=== PATIENT | male | born 1950 | race Caucasian/White ===

== ENCOUNTER 2024-03-01 14:07 | Inpatient (IN) | payer MEDICARE ==
[~2024-03-01] VITALS: Ht 175.3 cm; Wt 58.1 kg
[2024-03-01] MEDS: SODIUM CHLORIDE 0.9% 1000ML BAG (SEPSIS BOLUS) IV ONE (14:47)
[2024-03-01 14:49] LABS: CHLORIDE 96 mEq/L (98-107); HEMATOCRIT. 37.6 % (42.0-52.0); HEMOGLOBIN. 12.6 g/dL (14.0-18.0); MEAN CORPUSCULAR HGB CONC 33.5 g/dL (31.0-37.0); MEAN CORPUSCULAR VOLUME 95.6 fL (80.0-94.0); MEAN PLATELET VOLUME 7.4 fl (7.4-10.4); PLATELET 452 x1000/uL (130-400); POTASSIUM 4.6 mEq/L (3.5-5.1); RED BLOOD CELL COUNT 3.93 mill/uL (4.7-6.1); SODIUM 130 mEq/L (136-145); WHITE BLOOD COUNT 24.9 x1000/uL (4.5-11.0)
[2024-03-01 14:50] LABS: CALCIUM 9.6 mg/dL (8.7-10.4); CARBON DIOXIDE 22 mEq/L (21-32)
[2024-03-01 14:55] LABS: CREATININE 1.5 mg/dL (0.6-1.3); GLUCOSE 136 mg/dL (70-105); UREA NITROGEN BLOOD 26 mg/dL (9-23)
[2024-03-01 14:58] LABS: DIFFERENTIAL COMMENT 1
[2024-03-01 15:01] LABS: D-DIMER 3.53 mg/L FEU (<0.50); INR 1.3; PROTHROMBIN TIME 13.8 sec (9.6-11.0)
[2024-03-01] MEDS: PIPERACILLIN/TAZO 3.375G/50ML 50 ML IV ONE (15:41)
[2024-03-01 16:02] LABS: PLATELET ESTIMATE INCREASED
[2024-03-01 16:04] LABS: LACTIC ACID 6.5 mmol/L (0.4-2.0)
[2024-03-01 16:05] LABS: TROPONIN I HIGH SENSITIVITY 154 ng/L (3.0-53)
[2024-03-01] MEDS: SODIUM CHLORIDE 0.9% 500 ML IV ONE (16:15)
[2024-03-01] MEDS: VANCOMYCIN 500 MG in DEXT 5% WATER 100 ML IV SCH (16:47)
[2024-03-01] MEDS ORDERED: ONDANSETRON HCL 4MG/2ML INJ IV PRN (17:30)
[2024-03-01] MEDS ORDERED: IPRATROPIUM/ALBUTEROL 0.5-3(2.5)MG/3ML NEB HHN PRN (17:30)
[2024-03-01 17:49] LABS: IRON 30 ug/dL (65-175)
[2024-03-01 17:52] LABS: TOTAL IRON BINDING CAPACITY 215 ug/dl (250-425)
[2024-03-01 17:56] LABS: TROPONIN I HIGH SENSITIVITY 312 ng/L (3.0-53)
[2024-03-01 18:11] LABS: ALANINE AMINOTRANSFERASE 13 IU/L (10-49); ALBUMIN 2.9 g/dL (3.2-4.8); ASPARTATE AMINOTRANSFERASE 17 IU/L (<34); BILIRUBIN DIRECT 0.2 mg/dL (<=3.0); BILIRUBIN TOTAL 0.6 mg/dL (0.1-1.0); PHOSPHORUS 3.3 mg/dL (2.5-4.9); PROTEIN TOTAL 5.8 g/dL (6.0-8.3)
[2024-03-01] MEDS: FAMOTIDINE 20MG/2ML VIAL IV SCH (18:12)
[2024-03-01] MEDS: ENOXAPARIN 40MG/0.4ML SYR SUBCUT SCH (18:29)
[2024-03-01] MEDS: SODIUM CHLORIDE 0.9% 1,000 ML IV SCH (18:29)
[2024-03-01] MEDS ORDERED: VANCOMYCIN 1GM/200ML PMX (BAXTER) IV NR (18:30)
[2024-03-01] MEDS: VANCOMYCIN 1000MG/250ML IV NR (19:14)
[2024-03-01] MEDS: MAGNESIUM 4 G PREMIX 100 ML IV NR (20:00)
[2024-03-01] MEDS ORDERED: IOHEXOL-350 100 ML BOTTLE ONE (21:44)
[2024-03-01 22:46] LABS: TROPONIN I HIGH SENSITIVITY 282 ng/L (3.0-53)
[2024-03-02] VITALS (7 sets, daily range): BP systolic 106–163; BP diastolic 50–79; PULSE 84–135; RESP 18–20; TEMP 97.5–98.7
[2024-03-02] MEDS: PIPERACILLIN/TAZO 3.375G/50ML 50 ML IV SCH
[2024-03-02 02:18] LABS: CREATINE KINASE MB FRACTION 2.5 ng/mL (0.5-3.6)
[2024-03-02 07:55] LABS: HEMATOCRIT. 32.3 % (42.0-52.0); HEMOGLOBIN. 10.9 g/dL (14.0-18.0); MEAN CORPUSCULAR HEMOGLOBIN 32.1 pg (28.0-32.0); MEAN CORPUSCULAR HGB CONC 33.7 g/dL (31.0-37.0); MEAN CORPUSCULAR VOLUME 95.2 fL (80.0-94.0); MEAN PLATELET VOLUME 7.6 fl (7.4-10.4); PLATELET 342 x1000/uL (130-400); RED CELL DISTRIBUTION WIDTH 14.6 % (11.6-14.6); WHITE BLOOD COUNT 23.4 x1000/uL (4.5-11.0)
[2024-03-02 07:58] LABS: DIFFERENTIAL COMMENT 1
[2024-03-02 08:00] LABS: CARBON DIOXIDE 22 mEq/L (21-32); CHLORIDE 102 mEq/L (98-107); POTASSIUM 3.1 mEq/L (3.5-5.1); SODIUM 132 mEq/L (136-145)
[2024-03-02 08:01] LABS: CALCIUM 8.7 mg/dL (8.7-10.4)
[2024-03-02 08:06] LABS: CREATININE 0.9 mg/dL (0.6-1.3); GLUCOSE 64 mg/dL (70-105); TRIGLYCERIDE 98 mg/dL (0-150); UREA NITROGEN BLOOD 17 mg/dL (9-23)
[2024-03-02 08:07] LABS: LDL CHOLESTEROL 89 mg/dL (5-100)
[2024-03-02 08:08] LABS: CHOLESTEROL 138 mg/dL (<200); HDL CHOLESTEROL 42 mg/dL (>55)
[2024-03-02 08:09] LABS: CREATINE KINASE MB FRACTION 1.5 ng/mL (0.5-3.6); T4 FREE 0.97 ng/dL (0.89-1.76)
[2024-03-02] MEDS: VANCOMYCIN 1000MG/250ML IV SCH (11:32)
[2024-03-02] MEDS: DILTIAZEM HCL 30MG TABLET PO SCH (12:21)
[2024-03-02] MEDS: POTASSIUM CHLORIDE 20MEQ/PACKET PO NR (14:30)
[2024-03-02] MEDS: MAGNESIUM 2 G PREMIX 50 ML IV NR (17:28)
[2024-03-02] MEDS: MAGNESIUM OXIDE 400MG TABLET PO SCH (17:28)
[2024-03-02 20:25] LABS: PLATELET ESTIMATE NORMAL
[2024-03-03] VITALS: BP_SYST 132; BP_DIAS 63; BP_DIAS 64; PULSE 81; RESP 17; RESP 19; TEMP 97.7; TEMP 97.9
[2024-03-03 04:00] VITALS: BP 132/63; PULSE 81; RESP 19; TEMP 97.7
[2024-03-03 07:27] LABS: CARBON DIOXIDE 25 mEq/L (21-32); CHLORIDE 100 mEq/L (98-107); POTASSIUM 3.2 mEq/L (3.5-5.1); SODIUM 133 mEq/L (136-145)
[2024-03-03 07:28] LABS: CALCIUM 8.6 mg/dL (8.7-10.4)
[2024-03-03 07:33] LABS: CREATININE 0.7 mg/dL (0.6-1.3); GLUCOSE 84 mg/dL (70-105); UREA NITROGEN BLOOD 12 mg/dL (9-23)
[2024-03-03 08:00] VITALS: BP 133/63; PULSE 89; RESP 20; TEMP 98.1
[2024-03-03 08:03] LABS: HEMATOCRIT 30.6 % (42.0-52.0); HEMOGLOBIN 10.5 g/dL (14.0-18.0); MEAN CORPUSCULAR HGB CONC 34.3 g/dL (31.0-37.0); MEAN CORPUSCULAR VOLUME 93.2 fL (80.0-94.0); PLATELET 322 x1000/uL (130-400); RED BLOOD CELL COUNT 3.29 mill/uL (4.7-6.1); RED CELL DISTRIBUTION WIDTH 14.6 % (11.6-14.6); WHITE BLOOD COUNT 18.4 x1000/uL (4.5-11.0)
[2024-03-03] MEDS: POTASSIUM CHLORIDE 20MEQ/PACKET PO NR (09:13)
[2024-03-03 12:00] VITALS: BP 107/71; PULSE 90; RESP 18; TEMP 97.6
[2024-03-03 16:00] VITALS: BP 128/63; PULSE 86; RESP 18; TEMP 97.6
[2024-03-03 20:00] VITALS: BP 120/52; PULSE 82; RESP 20; TEMP 97.5
[2024-03-04] VITALS (7 sets, daily range): BP systolic 121–145; BP diastolic 53–70; PULSE 85–93; RESP 16–20; TEMP 97.5–99; O2SAT 98
[2024-03-04 08:14] LABS: HEMATOCRIT 31.3 % (42.0-52.0); HEMOGLOBIN 10.5 g/dL (14.0-18.0); MEAN CORPUSCULAR HEMOGLOBIN 31.9 pg (28.0-32.0); MEAN CORPUSCULAR HGB CONC 33.6 g/dL (31.0-37.0); MEAN CORPUSCULAR VOLUME 94.9 fL (80.0-94.0); RED CELL DISTRIBUTION WIDTH 14.7 % (11.6-14.6); WHITE BLOOD COUNT 20.3 x1000/uL (4.5-11.0)
[2024-03-04 08:29] LABS: CHLORIDE 101 mEq/L (98-107); POTASSIUM 3.3 mEq/L (3.5-5.1); SODIUM 133 mEq/L (136-145)
[2024-03-04 08:30] LABS: CARBON DIOXIDE 26 mEq/L (21-32)
[2024-03-04 08:31] LABS: CALCIUM 8.5 mg/dL (8.7-10.4)
[2024-03-04 08:35] LABS: CREATININE 0.6 mg/dL (0.6-1.3); GLUCOSE 84 mg/dL (70-105)
[2024-03-04 08:36] LABS: UREA NITROGEN BLOOD 11 mg/dL (9-23)
[2024-03-04] MEDS: GUAIFENESIN-DM 200MG-20MG/10ML UDC PO PRN (10:57)
[2024-03-04] MEDS: POTASSIUM CHLORIDE 20MEQ/PACKET PO NR (10:58)
[2024-03-04] MEDS: MAGNESIUM 4 G PREMIX 100 ML IV NR (12:42)
[2024-03-04] MEDS: METHYLPREDNISOLONE SOD SUCC 125MG/2ML (ACT-O-VIAL) IV SCH (13:40)
[2024-03-04] MEDS: DILTIAZEM HCL 30MG TABLET PO SCH (14:00)
[2024-03-04] MEDS: BUDESONIDE 0.5MG/2ML NEB HHN SCH (20:41)
[2024-03-04] MEDS: IPRATROPIUM/ALBUTEROL 0.5-3(2.5)MG/3ML NEB HHN SCH (20:44)
[2024-03-04 20:48] LABS: PLATELET 295 x1000/uL (130-400)
[2024-03-05] VITALS (11 sets, daily range): BP systolic 120–142; BP diastolic 46–68; PULSE 69–118; RESP 16–21; TEMP 97.6–98.7; O2SAT 96–98
[2024-03-05 06:02] LABS: HEMATOCRIT 30.1 % (42.0-52.0); HEMOGLOBIN 10.3 g/dL (14.0-18.0); MEAN CORPUSCULAR HEMOGLOBIN 31.9 pg (28.0-32.0); MEAN CORPUSCULAR HGB CONC 34.1 g/dL (31.0-37.0); MEAN CORPUSCULAR VOLUME 93.5 fL (80.0-94.0); PLATELET 316 x1000/uL (130-400); RED BLOOD CELL COUNT 3.22 mill/uL (4.7-6.1); RED CELL DISTRIBUTION WIDTH 14.9 % (11.6-14.6)
[2024-03-05 06:09] LABS: CHLORIDE 100 mEq/L (98-107); POTASSIUM 3.7 mEq/L (3.5-5.1); SODIUM 132 mEq/L (136-145)
[2024-03-05 06:10] LABS: CALCIUM 8.6 mg/dL (8.7-10.4); CARBON DIOXIDE 28 mEq/L (21-32)
[2024-03-05 06:15] LABS: CREATININE 0.6 mg/dL (0.6-1.3); GLUCOSE 135 mg/dL (70-105); UREA NITROGEN BLOOD 13 mg/dL (9-23)
[2024-03-05] MEDS: VANCOMYCIN 1GM/200ML PMX (BAXTER) IV SCH (11:19)
[2024-03-06] VITALS: BP 133/62; PULSE 96; RESP 19; TEMP 98.8
[2024-03-06 00:27] VITALS: PULSE 97; RESP 18; O2SAT 96
[2024-03-06 04:00] VITALS: BP 130/68; PULSE 97; RESP 20; TEMP 98.5
[2024-03-06 06:03] LABS: CALCIUM 8.6 mg/dL (8.7-10.4); CHLORIDE 100 mEq/L (98-107); POTASSIUM 3.5 mEq/L (3.5-5.1); SODIUM 133 mEq/L (136-145)
[2024-03-06 06:04] LABS: CARBON DIOXIDE 27 mEq/L (21-32)
[2024-03-06 06:05] LABS: HEMATOCRIT 28.9 % (42.0-52.0); HEMATOCRIT. 28.9 % (42.0-52.0); HEMOGLOBIN 9.9 g/dL (14.0-18.0); HEMOGLOBIN. 9.9 g/dL (14.0-18.0); MEAN CORPUSCULAR HGB CONC 34.2 g/dL (31.0-37.0); MEAN CORPUSCULAR VOLUME 93.5 fL (80.0-94.0); MEAN PLATELET VOLUME 7.6 fl (7.4-10.4); PLATELET 307 x1000/uL (130-400); RED BLOOD CELL COUNT 3.09 mill/uL (4.7-6.1); RED CELL DISTRIBUTION WIDTH 14.7 % (11.6-14.6); WHITE BLOOD COUNT 29.7 x1000/uL (4.5-11.0)
[2024-03-06 06:09] LABS: CREATININE 0.6 mg/dL (0.6-1.3); GLUCOSE 136 mg/dL (70-105); UREA NITROGEN BLOOD 20 mg/dL (9-23)
[2024-03-06 06:25] LABS: DIFFERENTIAL COMMENT 1
[2024-03-06 08:08] VITALS: BP 151/76; PULSE 95; RESP 20; TEMP 98.6
[2024-03-06] MEDS: SODIUM PHOSPHATE 15 MMOL in DEXT 5% WATER 245 ML IV NR (11:01)
[2024-03-06 11:12] LABS: PLATELET ESTIMATE NORMAL
[2024-03-06 11:36] VITALS: BP 137/62; PULSE 90; RESP 18; TEMP 98.9
[2024-03-06 15:45] VITALS: BP 155/77; PULSE 83; RESP 18; TEMP 98.4
[2024-03-06] MEDS ORDERED: ACETAMINOPHEN 325MG TABLET PO PRN (16:00)
== END 2024-03-06 16:50 | disposition left against medical advice (07) | DRG 871 ==
LOC: ER 14:07 → 5WST 16:23 → EDBEDREQ 16:35 → EDBEDREQTM 16:35 → 7WST 03-02 00:12
PROVIDERS: ADMIT Internal Medicine; ATTEND Internal Medicine
DX: A41.9 Sepsis, unspecified organism (principal); J18.9 Pneumonia, unspecified organism; E44.0 Moderate protein-calorie malnutrition; N17.9 Acute kidney failure, unspecified; R64 Cachexia; I24.89 Other forms of acute ischemic heart disease; I24.9 Acute ischemic heart disease, unspecified; E87.1 Hypo-osmolality and hyponatremia; J44.0 Chronic obstructive pulmonary disease with (acute) lower respiratory infection; C34.90 Malignant neoplasm of unspecified part of unspecified bronchus or lung; Z68.1 Body mass index [BMI] 19.9 or less, adult; E88.09 Other disorders of plasma-protein metabolism, not elsewhere classified; D64.9 Anemia, unspecified; I10 Essential (primary) hypertension; Z20.822 Contact with and (suspected) exposure to COVID-19; Z66 Do not resuscitate; Z99.81 Dependence on supplemental oxygen; E83.42 Hypomagnesemia; Z53.29 Procedure and treatment not carried out because of patient's decision for other reasons; R65.20 Severe sepsis without septic shock; E87.6 Hypokalemia; R06.03 Acute respiratory distress; R91.8 Other nonspecific abnormal finding of lung field; Z87.891 Personal history of nicotine dependence; Z85.118 Personal history of other malignant neoplasm of bronchus and lung
CPT/HCPCS: 36415; 71045; 71275; 80048; 80061; 80076; 80202; 82550; 82553; 82728; 83036; 83540; 83550; 83605; 83735; 83880; 83930; 84100; 84145; 84439; 84443; 84484; 85025; 85027; 85379; 87070; 87426; 92610; 93005; 93306; 93970; 94640; 97162; 99291; C1893; J1650; J2543; J2930; J3370; J3475; J3490; J7030; J7060; J7626; Q9967